=== PATIENT | female | born 1975 ===

== ENCOUNTER 2018-02-16 17:46 | Inpatient (IN) ==
[~2018-02-16 17:46] MED LIST: ISOVUE-370 76%-LOCM 1 ML ONE
[2018-02-16 18:35] LABS: #Lymphocytes 1.2 thou/uL (1.20-3.40); #Monocytes 0.3 thou/uL (0.11-0.59); #Neutrophils 2.9 thou/uL (1.40-6.50); %Basophils 0.6 % (0.0-1.0); %Lymphocytes 26.3 % (21.0-51.0); %Monocytes 7.2 % (0.0-10.0); %Neutrophils 64.9 % (42.0-75.0); Hemoglobin 12.9 g/dL (12.0-16.0); Mean Corpuscular HGB CONC 33.5 g/dL (32.0-36.0); Mean Corpuscular Hemoglobin 31.4 pg (27.0-31.0); Mean Corpuscular Volume 93.8 fL (78.0-98.0); Mean Platelet Volume 7.3 fL (7.4-10.4); Platelet Count 252 thou/uL (130-400); RBC Distribution Width 11.4 % (11.5-14.5); Red Blood Cell (RBC) Count 4.11 mill/uL (4.20-5.40); White Blood Cell (WBC) Count 4.5 thou/uL (4.8-10.8)
[2018-02-16 18:42] LABS: INR-International Normal Ratio 0.9; PTT 25.9 SEC (22.9-36.1); Prothrombin Time 12.4 SEC (12.0-14.7)
[2018-02-16 18:46] LABS: BHCG - Serum Negative (NEGATIVE); Pregs Control Background? CLEAR/WHITE (CLR/WHITE); Pregs Control Bar Appear? YES (CONTROL BAR)
[2018-02-16 18:50] LABS: ALT (SGPT) 12 U/L (8-55); AST (SGOT) 16 U/L (5-34); Albumin 4.2 g/dL (3.5-5.0); Alkaline Phosphatase 61 U/L (40-150); Anion Gap 13 mmol/L (10-20); BUN (Urea Nitrogen) 16 mg/dL (7.0-18.7); Bilirubin, Total 0.4 mg/dL (0.2-1.2); Calc. Creatinine Clearance 0 mL/min (70-130); Calcium 9.2 mg/dL (7.8-10.44); Carbon Dioxide 20 mmol/L (22-29); Chloride 109 mmol/L (98-107); Estimated GFR-MDRD 89; Globulin 2.4 g/dL (2.4-3.5); Glucose 91 mg/dL (70-105); Potassium 3.5 mmol/L (3.5-5.1); Protein, Total 6.6 g/dL (6.0-8.3); Sodium 138 mmol/L (136-145)
[2018-02-16 18:53] LABS: CKMB 0.8 ng/mL (0-6.6); Troponin I Less than 0.010 ng/mL (< 0.028)
[2018-02-16 19:28] LABS: Bilirubin Negative (Negative); Blood, Urine Negative (Negative); Clarity CLEAR (Clear); Glucose, Urine (Dipstick) Negative (Negative); Leukocyte Negative (Negative); Nitrite Negative (Negative); Protein, Urine (Dipstick) Negative (Neg-Trace); Urobilinogen 0.2 mg/dL (0.2-1.0)
[2018-02-16 19:33] LABS: Specific Gravity, Urine 1.046 (1.002-1.036)
[2018-02-16 19:38] LABS: Amphetamine Not Detected (NotDetected); Barbiturates Screen Not Detected (NotDetected); Benzodiazepine Screen Not Detected (NotDetected); Cocaine Metabolite Screen Not Detected (NotDetected); Medtox Control Line Valid? VALID (VALID); Medtox Reader # READER 1; Methadone Not Detected (NotDetected); Methamphetamine Not Detected (NotDetected); Opiate Screen Not Detected (NotDetected); Oxycodone Screen Not Detected (NotDetected); Phencyclidine (PCP) Not Detected (NotDetected); THC/Cannabinoid Screen Not Detected (NotDetected); Tricyclic Screen Not Detected (NotDetected)
[2018-02-16 21:00] VITALS: BMI 21.1
[2018-02-16] MEDS ORDERED: Ibuprofen 200 MG TAB PO SCH (23:51)
[2018-02-17] MEDS ORDERED: Ondansetron HCl/PF 4 MG/2 ML Vial IVP PRN (03:03)
[2018-02-17] MEDS: Acetaminophen 325 MG TAB PO PRN ×2 (03:11→11:35)
[2018-02-17 05:05] LABS: Cardiac Risk 3.6 (Less than 4.5)
[2018-02-17] MEDS ORDERED: Sodium Chloride 0.9% 1,000 ML IV SCH (07:15)
--- NOTE | 2018-02-17 08:58 | CT ---
CONTRAST ENHANCED CTA CAROTID ARTERIES AND INTRACRANIAL CTA 02/16/18 HISTORY: Left facial drooping, slurred speech, weakness for 45 minutes. Contrast enhanced CTA of the carotid arteries and intracranial CTA is performed. 2D and 3D reconstruc kezia images performed on an independent 3D workstation. CTA images demonstrate the aortic arch to be unremarkable. The right and left common and internal carotid arteries are patent without evidence of significant di sease or stenosis. No evidence of acute clot seen. The patient has a dominant left vertebral artery w ith no evidence of acute clot. The basilar artery is also unremarkable. INTRACRANIAL CTA: The right and left middle cerebral arteries as well as the anterior cerebral artery and posterior cer ebral artery are patent without evidence of significant occlusion or lesions. No significant intracranial abnormalities noted otherwise. A small left maxillary sinus mucous retention cyst is seen. No other soft tissue neck abnormalities s een. IMPRESSION: Normal CTA carotid and intracranial CTA. Findings discussed with Dr. Castro at 6:03 p.m. on 02/16/18. Code CR POS: TAD
--- NOTE | 2018-02-17 08:58 | CT ---
CT BRAIN 02/16/18 HISTORY: Left facial drooping, slurred speech. Noncontrast enhanced CT images of the brain is obtained from the base of the skull to the vertex. Bra in and bone windows are obtained. CT images of the brain demonstrate the brain to be unremarkable. No evidence of intracranial masses, hemorrhages, strokes or contusions seen. Ventricles are of normal size. IMPRESSION: Normal CT brain. Findings discussed with Dr. Castro at 5:57 p.m. on 02/16/18. Code KOJO POS: TAD
[2018-02-17] MEDS ORDERED: Aspirin 325 mg Enteric Coated Tablet PO SCH (09:00)
[2018-02-17] MEDS ORDERED: Enoxaparin Sodium 40 MG/0.4 ML SYRINGE SC SCH ×2 (09:00→21:00)
[2018-02-17] MEDS ORDERED: Multivit, Therapeutic 1 TAB PO SCH (09:00)
[2018-02-17] MEDS ORDERED: Prevnar 13-Val Conj/PF 0.5 ML SYRINGE IM ONE (09:00)
--- NOTE | 2018-02-17 09:02 | HP ---
CHIEF COMPLAINT: Generalized weakness and also left-sided facial droop. HISTORY OF PRESENT ILLNESS: Patient is a very pleasant 42-year-old female with a history of breast c ancer status post mastectomy of the left breast without any radiation or chemotherapy, who presented to the hospital with possible stroke. Patient stated that around 4:00 p.m., she went with her [place] fishing around [facility] when she was out in the sun for maybe about 15-20 or maybe 30 minut es when she started to have significant palpitations, got very nauseated, felt very shaky and felt more th her extremities were very weak and got very short of breath. Patient stated that this continued t o worsen. To the point that she was unable to verbalize any words. Patient's was with her w ho stated that she understood verbal commands; however, was unable to speak at all. At this time, EM S was called and patient was brought into the hospital for further evaluation. Patient stated that w vipinzhen she was in EMS, they noticed left-sided facial droop and initially patient did not understand wh at they were talking about; however, when patient was given a mirror, she did see that she did have a significant amount of the left-sided facial droopiness and she also had some numbness around her lef t-sided area. Patient initially underwent a stroke workup, in which she did have a CTA and CT brain which I have no results to review currently; however, the patient was told in the ER that there is a possibility that she did have a minor stroke; however, after the ER doctor discussed this with the vipin forrest, no intervention was recommended since it was such a minor area. Again, I do not have the readings in front of me. Patient stated that this has never happened to her before. PAST MEDICAL HISTORY: History of breast cancer, status post mastectomy, no chemo or radiation. PAST SURGICAL HISTORY: She had a left breast mastectomy with implantation and has a tonsillectomy. FAMILY HISTORY: Mother has diabetes, high blood pressure and stroke and father at an ear ly age that was nonmedically related. SOCIAL HISTORY: She denies any smoking, alcohol, or drug use. ALLERGIES: She is allergic to SULFA and azithromycin. She gets rashes and feels warm. MEDICATIONS: She normally takes a multivitamin and ibuprofen as needed. REVIEW OF SYSTEMS: All negative except for the ones mentioned above in the HPI. PHYSICAL EXAMINATION: VITAL SIGNS: Temperature 98.3, 77, 16, 98% on room air, 120/77. GENERAL: She is awake, alert, oriented x3, does not appear in any distress. CARDIOVASCULAR: S1, S2 present. No murmurs, rubs, or gallops. ABDOMEN: Soft, nontender. Bowel sounds are present x2. EXTREMITIES: No edema. Pedal pulse present x2. NEUROLOGIC: She is 5/5 upper extremity and 5/5 lower extremity strength. No weakness noted. Sensat ion intact to upper and lower extremity. CRANIAL NERVES: Intact. She does not have any more droopiness of her left lower lip area. No lid l ag on the left side. She does have some numbness that she feels around her left lower lip area. Cer ebellum test [id number], [id number] is intact. LABORATORY DATA: Are as of the following: WBCs of 4.5, hemoglobin of 12.9, hematocrit of 38.6, plat elets of 252. Chemistry: Sodium of 138, potassium of 3.5, bicarbonate of 20, BUN of 16, creatinine 0.71. Troponin x1 is negative. test was negative. TSH was 1.4. LFTs were normal. ASSESSMENT AND PLAN: Patient is a very pleasant 42-year-old female who presents to the hospital for possible stroke. 1. Stroke versus transient ischemic attack. Given patient's symptoms, there is a possibility that s he did have a small stroke. She does only have left-sided facial droopiness of her lower lip area, n ot her whole left side. We will get an MRI brain in the morning. We will order a CT head and neck t o rule out any abnormalities. Also, we will get an echocardiogram, since she did have some atrial en largement noted on the EKG. Patient states that she did have significant amount of palpitations; how ever, currently she is in normal sinus rhythm. Patient also states that she normally her blood press ure runs low and she does not take any aspirin at home, so we will start her on aspirin. We will catracho ck a lipid panel. We will also start her on some statin. We will get Neurology to come see the pretty ent and go from there. 2. Leukopenia. Patient states that she follows up with Hematology for her leukopenia. 3. Decreased appetite. Patient has noticed a decreased appetite and she has been complaining of sheila e heat or cold intolerance. We will check a TSH, which apparently was normal. Patient was recommend ed to follow up with her primary and maybe check thyroid antibodies to make sure that she is not in t he transitional period of hypothyroidism. 4. Deep venous thrombosis prophylaxis. We will put patient on subcutaneous heparin.
--- NOTE | 2018-02-17 12:19 | MRI ---
MRI BRAIN: Date: 02/17/18 PROVIDED CLINICAL HISTORY: Evidence for stroke. FINDINGS: The ventricular system appears normal in size and morphology. There is no evidence for intracranial h emorrhage or mass effect. No significant intracranial signal abnormality is evident. No evidence for restricted diffusion to suggest recent infarction. Appropriate flow-voids are seen within the major i ntracranial vessels. Mucus retention cyst seen within the left maxillary sinus. The extracranial soft tissues and calvarial marrow signal appear otherwise unremarkable. IMPRESSION: No evidence for an acute intracranial abnormality. POS: TAD
[2018-02-17 12:54] VITALS: BP 118/73; TEMP 98.6
--- NOTE | 2018-02-17 12:58 | CON ---
DATE OF CONSULTATION: 02/17/2018 CONSULTING PHYSICIAN: Hospitalist Service. IMPRESSION: Probable complex migraine. PLAN: MRI of the brain. Ms. Cleveland is a 42-year-old woman who came in for evaluation yesterday. She had walked to go fishing w ith her . As she was walking along, she became progressively more short of breath. She start ed feeling palpitations in her chest. As she got out of breath, she was having more trouble speaking . There appeared to be some left-sided facial droop in association with this. She became nauseous. She subsequently developed a headache that has lasted through the night. She was seen in the emerge ncy room yesterday. She had a CT scan with CT angiogram, both of which were unremarkable. Laborator y studies were normal. Vital signs have been stable and afebrile. The headache has passed. She rep orts having some episodic headaches in the past, but none that were overtly severe. She has no othe r significant past medical history other than some facial trauma with numbness above the right brow. PAST MEDICAL HISTORY: Negative. ALLERGIES: AZITHROMYCIN, SULFA. SOCIAL HISTORY: No illicit drug use. FAMILY HISTORY: Noncontributory. MEDICATIONS: No daily medication reported. REVIEW OF SYSTEMS: No ongoing chest pain, shortness of breath, lateralized weakness or numbness. PHYSICAL EXAMINATION: GENERAL: She is a healthy appearing middle-aged woman in no distress. VITAL SIGNS: Blood pressure 118/58, pulse 77, respirations 16, temperature 98.5. HEENT: Pupils equal and reactive. Conjunctivae are clear. Oropharynx clear. NECK: Supple. EXTREMITIES: No cyanosis. NEUROLOGIC: She is alert and appropriate. Her speech is fluent and clear. Her exam is nonfocal. SUMMARY: I suspect that this was a complex migraine given constellation of symptoms including headac he, nausea, and facial numbness with left facial droop, although her symptoms have resolved and there is no evidence of intracranial hemorrhage present. MRI is pending. Follow up on the results.
[2018-02-17] MEDS ORDERED: Ketorolac Tromethamine 30 MG/ML VIAL IVP SCH (14:45)
[2018-02-17] MEDS ORDERED: Ibuprofen 600 MG TAB PO SCH (15:15)
--- NOTE | 2018-02-17 15:33 | DIS ---
DATE OF DISCHARGE: 02/17/2018 DISCHARGE DISPOSITION: Home. FOLLOWUP: Follow up with primary care physician, Dr. Yoana España, office phone number is . Please follow up on the echocardiogram report. Please consult Cardiology as outpatient if patient has persistent palpitations. DISCHARGE MEDICATIONS: Aspirin 81 mg daily, Zocor 20 mg daily. The patient was seen on the day of discharge, denies any new complaints, no chest pain, shortness of breath, palpitations. No new focal deficit noted. BRIEF HOSPITAL COURSE: Patient is a 42-year-old female with breast cancer, status post mastectomy, p resented to the emergency room with generalized weakness with left-sided facial droop and headache. Please refer to the history and physical for further details. The patient was admitted to the hospital with a diagnosis of suspected CVA. CT scan of the brain on admission was negative for acute findings. CT angiogram of the head and neck were normal. She under went an MRI of the brain that was negative for acute CVA. The patient was seen by Neurology, Dr. Deja sharma. She will be discharged home on aspirin and statin. Her symptoms were probably due to TIA vers us complex migraine. She was advised to follow up with Neurology as outpatient. FINAL DIAGNOSES: 1. Transient ischemic attack versus complex migraine. 2. History of breast cancer. 3. Hyperlipidemia with LDL of 120, cholesterol 186, HDL 52, triglycerides 72. 4. Chronic kidney disease stage 2. 5. Dehydration on admission. Plan of care was discussed with the patient in detail. She stated understanding.
[2018-02-17] MEDS ORDERED: Atorvastatin Calcium 40 MG TAB PO SCH (21:00)
== END 2018-02-17 18:02 | disposition home or self-care (01) | DRG 69 ==
LOC: ERS 17:46 → 2SE 20:33
PROVIDERS: ADMIT Internal Medicine; ATTEND Internal Medicine
DX: G45.9 Transient cerebral ischemic attack, unspecified (principal); G43.909 Migraine, unspecified, not intractable, without status migrainosus; Z85.3 Personal history of malignant neoplasm of breast; E78.5 Hyperlipidemia, unspecified; N18.2 Chronic kidney disease, stage 2 (mild); E86.0 Dehydration; Z90.12 Acquired absence of left breast and nipple; Z88.1 Allergy status to other antibiotic agents; Z88.2 Allergy status to sulfonamides; D72.819 Decreased white blood cell count, unspecified
CPT/HCPCS: 36415; 36416; 70450; 70496; 70498; 70551; 80053; 80061; 80306; 81003; 82553; 84443; 84484; 84703; 85025; 85610; 85730; 93005; 93306; A4216; A4353; G8978-GP-CK; G8979-GP-CK; G8980-GP-CK; G8996-GN-CH; G8997-GN-CH; G8998-GN-CH; J2405